=== PATIENT | female | born 1995 | race Caucasian/White ===

== ENCOUNTER → 2017-10-14 | Outpatient (CLI) | payer OTHER ==
[~2017-10-14] MED LIST: CEFDINIR300 MG PO; FIORICET 50-301 EACH PO; NAPROSYN500 MG PO
== END | disposition home or self-care (01) ==
LOC: CDC 14:56
DX: R94.31 Abnormal electrocardiogram [ECG] [EKG] (principal); R00.2 Palpitations
CPT/HCPCS: 93000

== ENCOUNTER 2018-01-15 08:44 | Outpatient (CLI) | payer OTHER ==
[2018-01-15 08:59] VITALS: BP 124/77
[2018-01-15 18:00] LABS: CANDIDA DNA PROBE NEGATIVE; GARDNERELLA DNA PROBE NEGATIVE; TRICHOMONAS DNA PROBE NEGATIVE
[2018-01-16] MEDS ORDERED: IBUPROFEN800 MG PO (05:11)
== END 2018-01-15 10:35 | disposition home or self-care (01) ==
LOC: LDRP-OP 08:44 → 2WEST 08:46 → LDRP-OP 04-08 13:18
PROVIDERS: Nurse Practitioner
DX: O26.893 Other specified pregnancy related conditions, third trimester (principal); K21.9 Gastro-esophageal reflux disease without esophagitis; Z86.19 Personal history of other infectious and parasitic diseases; Z87.440 Personal history of urinary (tract) infections; Z3A.38 38 weeks gestation of pregnancy
CPT/HCPCS: 59025; 87480; 87510; 87660; G0378

== ENCOUNTER 2018-01-15 17:18 | Inpatient (IN) | payer OTHER ==
[~2018-01-15] VITALS: Ht 170.2 cm; Wt 88.0 kg
[2018-01-15 18:08] VITALS: BP 136/72
[2018-01-15 18:48] VITALS: BP 125/62
[2018-01-15 19:04] LABS: BASOPHIL (%) 0.3 % (0-1); EOSINOPHIL (%) 0.8 % (0-5); EOSINOPHIL COUNT 0.1 K/uL (0-0.3); HEMATOCRIT 33.8 % (36.0-46.0); HEMOGLOBIN 10.5 G/DL (11.9-15.5); LYMPHOCYTE (%) 7.9 % (15-42); LYMPHOCYTE COUNT 1.1 K/uL (1.0-2.8); MCHC 31.1 G/DL (30.0-36.0); MCV 77.3 FL (83-99); MONOCYTE (%) 3.9 % (3-12); MONOCYTE COUNT 0.6 K/uL (0-0.8); NEUTROPHIL (%) 86.1 % (45-76); NEUTROPHIL COUNT 12.2 K/uL (1.8-6.4); PLATELET COUNT 348 K/uL (156-360); RBC DIS.WIDTH-CV 15.4 % (11.8-14.6); RED BLOOD COUNT 4.37 M/uL (3.80-5.20); WHITE BLOOD COUNT 14.2 K/uL (4.1-10.2)
[2018-01-15 19:47] LABS: GROUP B STREP NEGATIVE (NEGATIVE)
[2018-01-15 19:54] VITALS: BP 123/73
[2018-01-15 21:04] VITALS: BP 120/69
[2018-01-15 22:02] VITALS: BP 123/73
[2018-01-15 22:04] LABS: APPEARANCE BLOODY ((CLEAR)); COLOR BLOODY ((YELLOW)); LEUKOCYTES MODERATE; NITRITE NEGATIVE; SPECIFIC GRAVITY 1.015 (1.000-1.030)
[2018-01-15 22:05] LABS: BILIRUBIN NEGATIVE; BLOOD LARGE; GLUCOSE (STRIP) NEGATIVE; KETONES NEGATIVE; PH, URINE 6.5 (5-8); PROTEIN (STRIP) 300; RED BLOOD CELLS TNTC /HPF (0-5); UROBILINOGEN 0.2 MG/DL (0.2-1.0)
[2018-01-15 22:07] LABS: UCUL ADDED? YES
[2018-01-15 22:51] VITALS: BP 118/56
[2018-01-16] VITALS (22 sets, daily range): BP systolic 95–155; BP diastolic 53–125
[2018-01-16] MEDS ORDERED: IBUPROFEN800 MG PO (05:11)
[2018-01-18 07:25] VITALS: BP 122/63
[2018-01-18 14:00] VITALS: BP 118/69
== END 2018-01-18 19:05 | disposition home or self-care (01) | DRG 775 ==
LOC: LDRP-OP 17:18 → 2WEST 17:19 → LDRP-OP 03-09 10:55
PROVIDERS: Midwife; Nurse Practitioner
PROC: 3E0S3BZ Introduction of Anesthetic Agent into Epidural Space, Percutaneous Approach (ICD-10-PCS; 2018-01-15)
PROC: 00HU33Z Insertion of Infusion Device into Spinal Canal, Percutaneous Approach (ICD-10-PCS; 2018-01-15)
PROC: 10E0XZZ Delivery of Products of Conception, External Approach (ICD-10-PCS; principal; 2018-01-16)
PROC: 0UQGXZZ Repair Vagina, External Approach (ICD-10-PCS; 2018-01-16)
DX: O99.344 Other mental disorders complicating childbirth (principal); O60.14X1 Preterm labor third trimester with preterm delivery third trimester, fetus 1; O71.4 Obstetric high vaginal laceration alone; O99.354 Diseases of the nervous system complicating childbirth; O23.13 Infections of bladder in pregnancy, third trimester; F33.9 Major depressive disorder, recurrent, unspecified; Z37.0 Single live birth; Z3A.36 36 weeks gestation of pregnancy; O99.214 Obesity complicating childbirth; E66.9 Obesity, unspecified; Z68.30 Body mass index [BMI] 30.0-30.9, adult; K21.9 Gastro-esophageal reflux disease without esophagitis; O99.62 Diseases of the digestive system complicating childbirth; G43.909 Migraine, unspecified, not intractable, without status migrainosus; F41.9 Anxiety disorder, unspecified; R00.2 Palpitations
CPT/HCPCS: 59025; 81003; 85025; 87077; 87086; 87186; 87480; 87510; 87653; 87660; C1755; G0378; J0702; J3010; J3370; J7120